=== PATIENT | female | born 1965 | race Caucasian/White ===

== ENCOUNTER 2019-10-29 15:22 | Outpatient (CLI) | payer OTHER, SELFPAY ==
[2019-10-29 15:59] LABS: Hematocrit 47.5 % (37.0-47.0); Hemoglobin 16.2 g/dL (12.0-15.0); Mean Corpuscular HGB Conc 34.1 g/dl (32-36); Mean Corpuscular Hemoglobin 32.1 pg (26-34); Mean Corpuscular Volume 94.2 fl (80-100); Platelet Count Result 199 k/mm3 (150-375); Red Blood Count 5.04 M/mm3 (4.2-5.4); Red Cell Distribution Width 12.7 % (11.5-14.5); White Blood Count 10.3 K/mm3 (4.5-10.0)
[2019-10-29 16:03] LABS: Add Urine Microscopic? YES; Appearance Urine Clear (Clear); Bilirubin Urine 1+ (Negative); Blood Urine Negative (Negative); Color Urine Yellow (Yellow); Glucose Urine UA Negative (Negative); Ketones Urine Trace mg/dL (Negative); Leukocyte Esterase Ur Negative LEU/UL (NEGATIVE); Mucus Urine Moderate /lpf; Nitrate Urine Negative (Negative); Protein Urine 1+ mg/dL (Negative); RBC Urine 0-2 /hpf (0-2); Squamous Epithelial Cell Urine Moderate /hpf (Few); WBC Urine 0-3 /hpf (0-3)
[2019-10-29 16:08] LABS: Specific Grav Ur 1.034 (1.001-1.035)
[2019-10-29 16:10] LABS: Anion Gap 11.9 mmol/L (7-16); Blood Urea Nitrogen 20 mg/dL (7-17); Calcium 9.1 mg/dL (8.4-10.2); Carbon Dioxide 27 mmol/L (22-30); Chloride 104 mmol/L (98-107); Estimated Glomerular Filt Rate > 60; Glucose 111 mg/dL (65-105); Potassium 3.9 mmol/L (3.4-5.0); Sodium 139 mmol/L (137-145)
== END 2019-10-29 15:23 | disposition home or self-care (01) ==
LOC: ANHIMG 15:25 → ANHLAB 15:27
PROVIDERS: PCP Family Medicine; Visit Provider Nurse Practitioner Family
DX: R30.0 Dysuria (principal); R82.4 Acetonuria; N39.0 Urinary tract infection, site not specified; R50.9 Fever, unspecified
CPT/HCPCS: 36415; 80048; 81001; 85027

== ENCOUNTER → 2020-07-14 01:56 | Outpatient (CLI) | payer OTHER, SELFPAY ==
[2020-07-14 17:07] LABS: SARS-CoV-2 RNA PCR Negative
== END ==
PROVIDERS: PCP Family Medicine; Visit Provider Internal Medicine Critical Care Medicine
DX: Z20.822 Contact with and (suspected) exposure to COVID-19 (principal); R50.9 Fever, unspecified
CPT/HCPCS: C9803; U0003; U0005

== ENCOUNTER 2020-07-16 09:29 | Outpatient (CLI) | payer OTHER, SELFPAY ==
--- NOTE | 2020-08-02 15:27 | WPDSLEEPSTUD ---
Sleep Study Date of Study: 07/16/20 Ordering Provider: Chester Art MD Interpreting Physician: Miguelina Michele MD Sleep Study Type: Polysomnogram Height: 1.63 m Weight: 85.729 kg Body Mass Index: 32.4 Neck Circumference (inches): 15 Robert Lee: 19 Reason for Sleep Study Hypersomnolence Sleep History Azalia Noe is a 54 year old female with difficulty falling asleep. She wakes throughout the night. She has excessive daytime sleepiness. There is a family history of narcolepsy. The patient occasionally snores but never loudly enough that others complain about it. She does not awaken at night with heartburn, belching or coughing. She rarely awakens from sleep feeling short of breath. She occasionally has trouble sleeping if she has a cold. She does not gasp for breath at night and does not have breathing problems at night reported to her by others. She rarely sweats excessively at night and rarely notices her heart pounding or beating irregularly at night. She frequently falls asleep during the day, rarely involuntarily and never while driving. She occasionally has loss of muscle tone with strong emotion. She frequently has daytime difficulties due to excessive sleepiness. she does not feel paralyzed on waking or falling asleep. She rarely has vivid dreamlike scenes upon awakening or falling asleep. She does not feel afraid to go to sleep. She occasionally has nightmares. She does not recall having dreams recently. She frequently has racing thoughts. She does not feel sad or depressed. She rarely has anxiety. She occasionally has muscular tension. She frequently notices parts of her body jerking and she frequently kicks at night. She frequently has crawling and aching feelings in her legs. She frequently has leg pain at night. She does not have morning jaw pain. She occasionally grinds her teeth during sleep. She frequently has bothered by pain during the day and is awakened by pain at night. She frequently wakes up feeling stiff in the morning. She occasionally wakes with soreness and achiness in her muscles and pain in the neck and spine. She has headaches, fatigue, memory problems and concentration difficulties. Normal bedtime is 10:00 p.m. falling asleep within 1-2 hours typically waking 5-6 times at night to urinate and reposition herself in bed. She wakes in the morning at 10:00 a.m.. She estimates getting 4 hours of sleep at night on average. On the weekends, she goes to bed at 10:30 p.m. and wakes at 9:00 a.m.. If she has a really bad night of sleep she may stay in bed longer. She does not take naps in the afternoon or evening. A short nap does not leave her feeling refreshed. She is drowsy in the morning for 3 hours or longer. Habits: Tobacco none for the last 25 years. Caffeine 1 cup of coffee a day. No alcohol or recreational drugs. [facility] Past Medical History Medical History BMI 32.0-32.9,adult Depression Dermatitis of face Digital mucinous cyst of finger of right hand Mononeuropathy, unspecified Myalgia Nasal congestion Other intervertebral disc degeneration, lumbosacral region Overactive bladder Polyosteoarthritis, unspecified Restless leg Right axillary swelling S I joint dysfunction Screening for lipid disorders Family History Family History Sibling Family history of diabetes mellitus in first degree relative Father Family history of pancreatic cancer Other No problems noted. Mother Diabetes mellitus Social History Social History Alcohol intake: never Medications Home Medications Medication Instructions Recorded Confirmed Type betamethasone valerate 0.12 % 1 applic TOPICAL BID 02/13/19 07/22/20 History topical foam esterified 1 tablet PO DAILY 02/13/19 07/22/20 History estrogens-met
[2020-08-02 15:40] VITALS: BMI 32.4
== END 2020-07-16 09:30 | disposition home or self-care (01) ==
LOC: ANHCSM 09:29
PROVIDERS: PCP Family Medicine; Visit Provider Family Medicine
DX: G47.00 Insomnia, unspecified (principal); G47.33 Obstructive sleep apnea (adult) (pediatric)
CPT/HCPCS: 95810

== ENCOUNTER 2020-12-24 13:02 | Outpatient (CLI) | payer OTHER, SELFPAY | END 2020-12-24 13:03 | disposition home or self-care (01) | LOC: ANHLAB 13:06 | PROVIDERS: PCP Family Medicine; Visit Provider Internal Medicine Critical Care Medicine | DX: G25.81 Restless legs syndrome (principal) | CPT/HCPCS: 36415; 82728 ==

== ENCOUNTER 2021-10-07 13:47 | Outpatient (CLI) | payer OTHER, SELFPAY ==
--- NOTE | ~2021-10-07 | MR_ITS ---
EXAMINATION: MR lumbar spine wo con DATE: 10/07/2021 14:17 INDICATION: Lumbago and radiculopathy TECHNIQUE: Magnetic resonance imaging (MRI) of the lumbar spine was performed without intravenous con trast. Sequences included sagittal T2-weighted FSE, sagittal T2-weighted FS FSE, sagittal T1-weighted FSE, and axial T2-weighted FSE. COMPARISON: 07/14/2010 FINDINGS: 8 degrees thoracolumbar dextrocurvature. 1 mm retrolisthesis L1 on L2 and L2 on L3 1 mm anterolisthes is L5 on S1.. Vertebral body heights are normal. Interval progression of now moderate disc height los s at L5-S1 with mild discogenic anterior discogenic edema. Marrow signal is otherwise normal. Additio nal mild disc desiccation and minimal to mild disc height loss at T10-T11, L1-L2, L2-L3 and L3-L4. Th e conus medullaris terminates at L1. There is normal signal in the caudal spinal cord. T2-weighted hy perintense likely right renal cysts the larger measuring 1.5 cm. Paravertebral soft tissues are other marcos unremarkable. The following disc levels are specifically discussed: T12-L1: Very small central disc protrusion. There is mild left and moderate right facet joint osteoar thritis. There is no neural foraminal stenosis. There is no central canal stenosis. L1-L2: Disc does not extend beyond the slightly more posterior endplate margin of L1. There is mild r ight facet joint osteoarthritis. There is minimal bilateral neural foraminal stenosis. There is minim al central canal stenosis. L2-L3: Disc is mildly bulging. There is mild right facet joint osteoarthritis. There is mild bilatera l neural foraminal stenosis. There is minimal central canal stenosis. L3-L4: Mild disc protrusions at the bilateral foraminal zones. There is severe bilateral facet joint osteoarthritis. There is mild bilateral, left greater than right neural foraminal stenosis. There is no central canal stenosis. L4-L5: The disc does not extend beyond the endplate margin. There is moderate to severe bilateral fac et joint osteoarthritis. There is minimal bilateral neural foraminal stenosis. There is no central ca nal stenosis. L5-S1: Disc is mildly bulging with annular fissure and right paracentral disc extrusion. There is rudi ateral facet joint osteoarthritis. There is mild left and mild to moderate right neural foraminal grady nosis. There is no central canal stenosis. IMPRESSION: 1. Interval progression of now moderate spondylosis at the lumbosacral junction and mild spondylosis in the more cephalad lumbar spine. Reviewed, dictated and finalized at location A.
== END 2021-10-07 13:48 | disposition home or self-care (01) ==
PROVIDERS: PCP Family Medicine; Visit Provider Nurse Practitioner Family
DX: M47.26 Other spondylosis with radiculopathy, lumbar region (principal)
CPT/HCPCS: 72148

== ENCOUNTER 2022-03-23 09:40 | Outpatient (CLI) | payer OTHER, SELFPAY ==
[2022-03-23 10:32] LABS: Basophils Absolute Auto 0.1 K/mm3 (0.0-0.1); Basophils Percent Auto 1.3 % (0.2-1.2); Eosinophils Absolute Auto 0.2 K/mm3 (0-0.3); Eosinophils Percent Auto 2.8 % (0-4.4); Hematocrit 42.5 % (37.0-47.0); Hemoglobin 14.2 g/dL (12.0-15.0); Immature Granulocyte Absolute 0.01 K/mm3 (0.00-0.031); Immature Granulocyte Percent A 0.2 % (0-0.5); Lymphocytes Absolute Auto 2.58 K/mm3 (0.9-3.2); Lymphocytes Percent Auto 40.5 % (18.3-44.2); Mean Corpuscular HGB Conc 33.4 g/dl (32-36); Mean Corpuscular Hemoglobin 32.1 pg (26-34); Mean Corpuscular Volume 95.9 fl (80-100); Mean Platelet Volume 10.3 fl (7.4-10.4); Monocytes Absolute Auto 0.5 K/mm3 (0.1-0.6); Monocytes Percent Auto 7.2 % (2.6-8.5); Neutrophils Absolute Auto 3.1 K/mm3 (1.3-6.7); Platelet Count Result 190 k/mm3 (150-375); Red Blood Count 4.43 M/mm3 (4.2-5.4); Red Cell Distribution Width 11.9 % (11.5-14.5); White Blood Count 6.4 K/mm3 (4.5-10.0)
[2022-03-23 10:50] LABS: Alanine Aminotransferase 26 U/L (6-35); Albumin Level 4.4 g/dL (3.5-5.1); Alkaline Phosphatase 77 U/L (38-126); Anion Gap 6 mmol/L (8-16); Aspartate Amino Transferase 26 U/L (14-36); Bilirubin,Total 0.6 mg/dL (0.2-1.3); Blood Urea Nitrogen 23 mg/dL (7-17); Calcium 9.1 mg/dL (8.4-10.2); Carbon Dioxide 28 mmol/L (22-30); Chloride 107 mmol/L (98-107); Cholesterol 207 mg/dL (0-200); Estimated Glomerular Filt Rate > 60; Glucose 95 mg/dL (65-110); HDL Direct 65 mg/dL; Potassium 4.1 mmol/L (3.4-5.0); Sodium 141 mmol/L (137-145); Triglycerides 195 mg/dL (<150)
[2022-03-23 11:02] LABS: LDL Cholesterol Direct 97 mg/dL
[2022-03-23 11:20] LABS: Erythrocyte Sedimentation Rate 2 mm/hr (0-20)
== END 2022-03-23 09:41 | disposition home or self-care (01) ==
LOC: ANHLAB 09:41
PROVIDERS: PCP Family Medicine; Visit Provider Family Medicine
DX: M79.10 Myalgia, unspecified site (principal); Z13.220 Encounter for screening for lipoid disorders; G58.9 Mononeuropathy, unspecified
CPT/HCPCS: 36415; 80053; 80061; 82607; 84443; 85025; 85652